=== PATIENT | female | born 1970 | race Caucasian/White ===

== ENCOUNTER 2024-03-20 08:12 | Outpatient (OUT) | payer BC, SELFPAY ==
--- NOTE | 2024-03-20 | XR_ITS ---
The [address] [address] Patient Name: MARLA CABEZAS MRN: [id number] date: 1970 Sex: F Assigned Patient Location: Current Patient Location: Accession/Order Number: [id number] Exam Date: 03/20/2024 13:40 Report Date: 03/21/2024 05:43 At the request of: TRISTAN VITALE Procedure: XR ankle LT min 3V PROCEDURE: XR foot LT min 3V, XR ankle LT min 3V HISTORY: LEFT FOOT PAIN ; dorsal midfoot pain radiating to lateral ankle COMPARISON: None. FINDINGS: BONES:Separate ossification adjacent tip of lateral malleolus with corticated margins favoring sequela of remote injury or an ununited secondary ossification center. No fracture, dislocation, bone lesion. Prominent calcaneal plantar spur. SOFT TISSUES:No visible soft tissue swelling. EFFUSION:None visible. OTHER: Negative. XR/XR ankle LT min 3V IMPRESSION: 1. No acute or specific findings to account for patient's symptoms. 2. Mild chronic/degenerative changes. Electronically authenticated by: ENRIKE CA Date: 03/21/2024 05:43
--- NOTE | 2024-03-20 | XR_ITS ---
The [address] [address] Patient Name: MARLA CABEZAS MRN: [id number] date: 1970 Sex: F Assigned Patient Location: Current Patient Location: Accession/Order Number: [id number] Exam Date: 03/20/2024 13:15 Report Date: 03/21/2024 05:43 At the request of: TRISTAN VITALE Procedure: XR foot LT min 3V PROCEDURE: XR foot LT min 3V, XR ankle LT min 3V HISTORY: LEFT FOOT PAIN ; dorsal midfoot pain radiating to lateral ankle COMPARISON: None. FINDINGS: BONES:Separate ossification adjacent tip of lateral malleolus with corticated margins favoring sequela of remote injury or an ununited secondary ossification center. No fracture, dislocation, bone lesion. Prominent calcaneal plantar spur. SOFT TISSUES:No visible soft tissue swelling. EFFUSION:None visible. OTHER: Negative. XR/XR foot LT min 3V IMPRESSION: 1. No acute or specific findings to account for patient's symptoms. 2. Mild chronic/degenerative changes. Electronically authenticated by: ENRIKE CA Date: 03/21/2024 05:43
== END 2024-03-20 08:13 | disposition home or self-care (01) ==
PROVIDERS: Visit Provider Podiatrist Foot & Ankle Surgery
DX: M79.672 Pain in left foot (principal); M25.572 Pain in left ankle and joints of left foot
CPT/HCPCS: 73610; 73630

== ENCOUNTER 2024-03-28 08:29 | Outpatient (OUT) | payer BC, SELFPAY ==
--- NOTE | 2024-03-28 | MR_ITS ---
The [address] [address] Patient Name: MARLA CABEZAS MRN: [id number] date: 1970 Sex: F Assigned Patient Location: MRI Current Patient Location: MRI Accession/Order Number: [id number] Exam Date: 03/28/2024 08:45 Report Date: 04/02/2024 08:38 At the request of: TRISTAN VITALE Procedure: MR ankle LT wo con EXAM: MR ankle LT wo con REASON FOR EXAM: Ankle instability M25.372, peroneal tear S86.312A. TECHNIQUE: Multiplanar, multisequence imaging of the left ankle was performed without contrast COMPARISON: Radiograph 03/20/2024. FINDINGS: There is mild fusiform thickening and intermediate signal the Achilles tendon, consistent with tendinosis. No tear is evident. The plantar fascia is thickened with an inferior calcaneal spur. A discrete tear is not evident. Laterally, the peroneal tendons are mildly thickened with intermediate signal consistent with tendinosis. No tear. The superficial peroneal retinaculum is intact. The anterior talofibular ligament is thin and attenuated and the calcaneofibular ligament is thickened with intermediate signal consistent with prior lateral ligamentous injury. No evidence of acute lateral ligamentous injury. Medially, the medial flexor tendons demonstrate mild thickening and intermediate signal of the posterior tibial tendon consistent with tendinosis. No tear. The flexor hallucis longus and flexor digitorum longus tendons are unremarkable. The deep deltoid ligament appears intact. The spring ligament is intact. The Lisfranc ligament is incompletely evaluated. Anteriorly, the anterior extensor tendons demonstrate normal thickness and signal without tendinosis or tear. The bone marrow signal is without acute fracture. The talar dome is congruent. The subtalar joints intact. The sinus tarsi is nonedematous. The midfoot appears congruent with moderate to severe osteoarthritis, most notable at the first through third TMT joints. The plantar musculature demonstrates normal bulk and signal. Remaining soft tissues are unremarkable. MR/MR ankle LT wo con IMPRESSION: 1. Sequela of prior lateral ligamentous injury. No evidence of acute ligamentous injury. 2. 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 3. Chronic plantar fasciopathy without tear. 4. 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 Electronically authenticated by: RUDY RODRÍGUEZ Date: 04/02/2024 08:38
--- OUTSIDE RECORDS SUMMARY | 2024-03-28 08:32 | XMS_ITS | CCD ---
Author Organization [facility] Care Team Providers Care [employer] Name Role Phone Paul Mackenzie Jr Attending Unavailable Paul Mackenzie Jr Admitting Unavailable DO Paul Mackenzie Jr Attending Provider [phone] Nasrin Glass Primary Care Physician Lola Velarde Unavailable Unavailable Karen Harper Unavailable Unavailable AllsoKaren lofton Attending Unavailable Karen Doty Admitting Unavailable Jack Solis Admitting Unavailable Jack Solis Attending Unavailable Jack Solis Referring Unavailable Nasrin Glass MD Unavailable Nasrin Glass MD Primary Care Provider NASRIN GLASS Attending Unavailable ROBIN BURNHAM Referring Unavailable NASRIN GLASS Attending Unavailable MARTÍNEZ KEMP Attending Unavailable Allergies Allergy Classification Reported Allergen(s) Allergy Type Date of Onset Reaction(s) Facility (3 sources) Bleach; Translations: [Bleach] Drug allergy Rash [facility] (1 source) No Known Medication Allergies; Translations: [No Known Medication Allergies] Propensity to adverse reactions (disorder) [facility] (3 sources) Hypochlorite Drug Allergy 3 Unknown [facility] (3 sources) Other Allergy to substance 3 [facility] Medications Current Medications Medication Drug Class(es) Dates Sig (Normalized) Sig (Original) Percocet (2 sources) Opioid Agonist Start: 06-30-2011 take 1 tablet by mouth every six hours Percocet 10/325 Oral, q6hr, tab(s), Refill(s) 0 Start Date: 06/30/11 Status: Ordered [id number] 200 actuat albuterol 0.09 mg/actuat metered dose inhaler (3 sources) beta2-Adrenergic Agonist Start: 01-05-2023 albuterol HFA 90 mcg/act inhaler azithromycin 250 mg oral tablet (5 sources) Macrolide Antimicrobial Start: 10-05-2023 azithromycin (Zithromax) 250 MG tablet Indications: Acute cough Take 2 tabs PO x 1 day then 1 tab PO daily x 4 days 6 tablet 0 10/05/2023 Active Start: 12-09-2019 take 1 tablet by carol th once daily azithromycin 250 mg Tab 250 mg, Oral, As Directed, Take two tabs by mouth on day one, then one tab daily, # 6 tab(s), Refills(s) 0, Pharmacy: [facility], 168, cm, 12/09/19 9:36:00 EDT, Height/Length Measured, 100, kg, 12/09/19 9:36:00 EDT, Weight Measured Start Date: 12/09/19 Status: Ordered 120 actuat budesonide 0.16 mg/actuat / formoterol fumarate 0.0048 mg/actuat / glycopyrrolate 0.009 mg/actuat metered dose inhaler (3 sources) Corticosteroid, beta2-Adrenergic Agonist Start: 03-30-2023 take 2 puff(s) by inhalation in the morning Vpovsnl-Cwatwhgjfde-Bxobuocoqh (Breztri Aerosphere) 160-9-4.8 MCG/ACT aerosol Indications: Moderate persistent asthma without complication (CMS/HCC) Inhale 2 puffs in the morning and 2 puffs before bedtime. 10.7 g 5 03/30/2023 Active codeine phosphate 2 mg/ml / guaiFENesin 20 mg/ml oral solution (2 sources) Opioid Agonist Start: 11-13-2019 take 10 mL by mouth every four hours for cough codeine-guaifenesin 10 mg-100 mg/5 mL oral syrup 10 mL, Oral, q4hr for cough, 240 mL, Refill(s) 0, [facility], 170, cm, 11/13/19 14:43:00 EDT, Height/Length Measured, 99, kg, 11/13/19 14:43:00 EDT, Weight Measured Start Date: 11/13/19 Status: Ordered cyclobenzaprine (2 sources) Muscle Relaxant Start: 06-30-2011 Flexeril Oral, TID, Refills( s) 0 Start Date: 06/30/11 Status: Ordered diclofenac sodium 75 mg delayed release oral tablet (3 sources) Nonsteroidal Anti-inflammatory Drug Start: 07-02-2023 diclofenac (Voltaren) 75 MG EC tablet Diclofenac 75mg Tab-DR (2 sources) Start: 10-21-2019 take 1 mg by mouth twice daily Diclofenac 75mg Tab-DR mg, Oral, BID, Refills(s) 0 Start Date: 10/21/19 Status: Ordered eletriptan 40 mg oral tablet (3 sources) Serotonin-1b and Serotonin-1d Receptor Agonist Relpax 40 MG tablet Take 40 mg by mouth. 0 Active estradiol 2 mg oral tablet (3 sources) Estrogen Start: 07-04-2023 take 1 tablet by mouth in the morning estradiol (Estrace) 2 MG tablet Indications: Hormone replacement therapy (HRT) Take 1 tablet (2 mg) by mouth in the morning. 90 tablet 3 07/04/2023 Active estradiol 1 mg / progesterone 100 mg oral capsule (2 sources) Progesterone, Estrogen Start: 10-21-2019 take 1 capsule by mouth once daily in the evening Bijuva 1 mg-100 mg oral capsule cap(s), Oral, qPM, Refill(s) 0 Start Date: 10/21/19 Status: Ordered ibuprofen 800 mg oral tablet (5 sources) Nonsteroidal Anti-inflammatory Drug Start: 11-13-2019 take 1 tablet by mouth every six hours at mealtime ibuprofen 800 mg Tab 800 mg = 1 tab(s), Oral, q6hr, with food or milk, # 40 tab(s), Refills(s) 0, Pharmacy: [facility], 170, cm, 11/13/19 14:43:00 EDT, Height/Length Measured, 99, kg, 11/13/19 14:43:00 EDT, Weight Measured Start Date: 11/13/19 Status: Ordered lisinopril 10 mg oral tablet (5 sources) Angiotensin Converting Enzyme Inhibitor Start: 12-03-2022 lisinopril 10 MG tablet Start: 10-21-2019 take 1 tablet by carol th once daily lisinopril 5 mg Tab 5 mg = 1 tab(s), Oral, Daily, # 30 tab(s), Refills(s) 0 Start Date: 10/21/19 Status: Ordered loratadine 10 mg oral tablet (3 sources) take 1 tablet by mouth in the morning loratadine (Claritin) 10 MG tablet Take 10 mg by mouth in the morning. 0 Active medroxyPROGESTERone acetate 2.5 mg oral tablet (3 sources) Progestin Start: 2022 take 1 tablet by mouth in the morning medroxyPROGESTERone (Provera) 2.5 MG tablet Indications: Hormone replacement therapy (HRT) Take 1 tablet (2.5 mg) by mouth in the morning. Take with food.. 90 tablet 3 07/04/2023 Active Mobic (2 sources) Nonsteroidal Anti-inflammatory Drug Start: 2010 Mobic Oral, Daily, Refills(s) 0 Start Date: 06/30/11 Status: Ordered Multiple Vitamins-Minerals (MULTI COMPLETE PO) (3 sources) Multiple Vitamins-Minerals (MULTI COMPLETE PO) Orally 0 Active predniSONE 20 mg oral tablet (3 sources) Start: 2023 End: 2023 take 2 tablets by mouth in the morning predniSONE (Deltasone) 20 MG tablet Indications: Acute cough Take 2 tablets (40 mg) by mouth in the morning for 5 days. 10 tablet 0 10/05/2023 10/10/2023 Active sertraline 50 mg oral tablet (5 sources) Serotonin Reuptake Inhibitor Start: 2022 take 1 tablet by mouth in the morning sertraline (Zoloft) 50 MG tablet Indications: Anxiety, generalized (CMS/HCC) Take 1 tablet (50 mg) by mouth in the morning. 90 tablet 3 07/04/2023 Active Start: 10-21-2019 take 50 mg by mouth once daily Zoloft 20 mg/mL oral concentrate 50 mg = 2.5 mL, Oral, Daily, # 225 mL, Refills(s) 0 Start Date: 10/21/19 Status: Ordered Problems Active Problems Problem Classification Problem Date Documented Date Episodic/Chronic Anxiety disorders (3 sources) Anxiety; Translations: [Anxiety disorder, unspecified] Onset: 03-29-2023 03-29-2023 Chronic Asthma (6 sources) Intermittent asthma; Translations: [Mild intermittent asthma, uncomplicated] Onset: 03-29-2023 Resolved: 03-29-2023 03-29-2023 Chronic Chronic obstructive pulmonary disease and bronchiectasis (3 sources) Acute exacerbation of chronic obstructive airways disease; Translations: [Chronic obstructive pulmonary disease with (acute) exacerbation] Onset: 03-29-2023 Resolved: 03-29-2023 03-29-2023 Chronic Disorders of lipid metabolism (6 sources) Hypercholesterolemia; Translations: [Pure hypercholesterolemia, unspecified] Onset: 11-17-2021 03-29-2023 Chronic Essential hypertension (6 sources) Essential hypertension; Translations: [Essential (primary) hypertension] Onset: 03-29-2023 03-29-2023 Chronic Headache; including migraine (9 sources) Menstrual migraine; Translations: [Menstrual migraine, not intractable, without status migrainosus] Onset: 06-23-2020 Resolved: 03-29-2023 03-29-2023 Chronic Menopausal disorders (3 sources) Disorder associated with menstruation AND/OR menopause; Translations: [Unspecified menopausal and perimenopausal disorder] Onset: 03-29-2023 03-29-2023 Chronic Mood disorders (3 sources) Mild depression; Translations: [Mild depression] Onset: 05-15-2021 03-29-2023 Chronic Nutritional deficiencies (3 sources) Vitamin D deficiency; Translations: [Vitamin D deficiency, unspecified] Onset: 11-17-2021 03-29-2023 Chronic Osteoarthritis (3 sources) Degenerative joint disease involving multiple joints; Translations: [Polyosteoarthritis, unspecified] Onset: 07-10-2019 03-29-2023 Chronic Other circulatory disease (2 sources) Pulmonary congestion ; Translations: [Other specified symptoms and signs involving the circulatory and respiratory systems] 10-06-2023 Episodic Other lower respiratory disease (2 sources) Cough; Translations: [Acute cough] 10-05-2023 Episodic Other nervous system disorders (3 sources) Chronic pain; Translations: [Other chronic pain] Onset: 03-29-2023 03-29-2023 Chronic Other nervous system disorders (3 sources) Plantar nerve lesion; Translations: [Lesion of plantar nerve, unspecified lower limb] Onset: 03-29-2023 03-29-2023 Chronic Other nutritional; endocrine; and metabolic disorders (3 sources) Lipoprotein deficiency disorder; Translations: [Lipoprotein deficiency] Onset: 04-12-2022 03-29-2023 Chronic Other upper respiratory disease (3 sources) Allergic rhinitis; Translations: [Allergic rhinitis, unspecified] Onset: 07-10-2019 03-29-2023 Chronic Peripheral and visceral atherosclerosis (3 sources) Atherosclerosis of aorta; Translations: [Atherosclerosis of aorta] Onset: 07-16-2021 03-29-2023 Chronic Prolapse of female genital organs (12 sources) Disorder of rectum; Translations: [Rectocele] Onset: 03-13-2022 Resolved: 07-04-2023 03-29-2023 Chronic Spondylosis; intervertebral disc disorders; other back problems (3 sources) Herniation of nucleus pulposus of lumbar intervertebral disc; Translations: [Other intervertebral disc displacement, lumbar region] Onset: 03-29-2023 03-29-2023 Chronic Thyroid disorders (3 sources) Hypothyroidism; Translations: [Hypothyroidism, unspecified] Onset: 07-10-2019 03-29-2023 Chronic Unclassified (2 sources) Discectomy of spine Onset: 05-19-2011 06-30-2011 Comment on above: 05/19/11, and 04/01/10 , L4-5 Past or Other Problems Problem Classification Problem Date Documented Date Episodic/Chronic Acute bronchitis (2 sources) Acute bronchitis Onset: 09-30-2019 11-13-2019 Episodic Other diseases of veins and lymphatics (3 sources) Peripheral venous insufficiency; Translations: [Venous insufficiency (chronic) (peripheral)] Onset: 07-10-2019 03-29-2023 Episodic Pneumonia (except that caused by tuberculosis or sexually transmitted disease) (5 sources) Pneumonia; Translations: [Pneumonia, unspecified organism] Onset: 11-04-2019 11-13-2019 Episodic Residual codes; unclassified (3 sources) Amnesia; Translations: [Other amnesia] Onset: 05-15-2021 03-29-2023 Episodic Residual codes; unclassified (3 sources) Insomnia; Translations: [Insomnia, unspecified] Onset: 05-08-2020 Resolved: 07-04-2023 07-04-2023 Episodic Spondylosis; intervertebral disc disorders; other back problems (6 sources) Lumbago co-occurrent with right-side sciatica; Translations: [Lumbago with sciatica, right side] Onset: 07-14-2022 Resolved: 03-29-2023 03-29-2023 Episodic Varicose veins of lower extremity (3 sources) Varicose veins of lower extremity; Translations: [Varicose veins of bilateral lower extremities with pain] Onset: 03-29-2023 03-29-2023 Episodic Viral infection (3 sources) Disease caused by 2019-nCoV; Translations: [COVID-19] Onset: 07-05-2020 04-24-2023 Episodic Results Test Name Value Interpretation Reference Range Facility BI MAMMOGRAM SCREENING TOMOS YNTHESIS BILATERALon 07-04-2023 BI MAMMOGRAM SCREENING TOMOSYNTHESIS BILATERAL This is a summary report. The complete report is available in the patient's medical record. If you cannot access the medical record, please contact the sending organization for a detailed fax or copy. EXAM: BI MAMMOGRAM SCREENING TOMOSYNTHESIS BILATERAL DATE: 07/24/2023 3:11 PM CLINICAL HISTORY: screening. COMPARISONS: 02/21/2020, 05/26/2017, and 05/13/2015. TECHNIQUE: Routine full-field digital mammograms and 3D breast tomosynthesis of both breasts were obtained. FINDINGS: There are no developing masses, suspicious microcalcifications, or areas of architectural distortion identified on the current study. No significant changes are identified from the prior studies, given differences in technique and positioning. IMPRESSION: BIRADS 1 - Negative Follow-up: Routine Screening Mamm. Density: Scattered fibroglandular density [2]. Board Certified Radiologists. Accredited by the ACR and FDA. MAMMOGRAPHY IS VERY IMPORTANT TO YOUR HEALTH. THE CURRENT [employer] GUIDELINES RECOMMENDS ANNUAL MAMMOGRAPHY BEGINNING AT AGE 40. THIS FACILITY UTILIZES A REMINDER SYSTEM TO ENSURE ALL PATIENTS RECEIVE REMINDER NOTIFICATIONS AT THE APPROPRIATE TIME BASED ON THE RECOMMENDATIONS OF THIS EXAM. ELECTRONICALLY SIGNED BY: Jacques Leonard MD Normal Not Available Comment on above: Order Comment: Last mammogram 2019 [facility] or spot compression prn MRI Ankle w/o Contrast Lefto n 05-10-2023 MRI Ankle w/o Contrast Left Exam Date/Time: 05/09/2023 18:38 EDT Reason for Exam: S92.022A M25.372 S93.492A M76.72 Report IMPRESSION: Findings suspicious for recent avulsed fracture at the tip of the lateral malleolus. Calcaneofibular ligament attaches near the fracture site. Low-grade sprains of the anterior and posterior talofibular ligaments. Degenerative changes in the midfoot. HISTORY: Twisting injury to ankle 2 weeks ago. Pain and swelling most and laterally. Denies prior ankle surgery. TECHNIQUE: Routine MRI of the left ankle/hindfoot COMPARISON: None RESULT: Cartilage: Tibiotalar and subtalar joint cartilage appears preserved. Degenerative changes in the partially imaged midfoot, especially at the first and second tarsometatarsal joints with subchondral cystic change. Ligaments: Distal tibiofibular ligaments appear intact. Anterior talofibular ligament appears grossly intact with mildly increased signal and thickening. Posterior talofibular ligament appears grossly intact with mildly increased signal. Calcaneofibular ligament appears grossly intact and attaching near the probable fracture as below. Deltoid ligament appears intact. Tendons: Achilles tendon, medial flexor tendons, peroneal tendons and extensor tendons are intact. Joint Fluid: Physiologic quantity of joint fluid. Bone Marrow: Cortical irregularity with small amount of bone marrow edema and tiny fragments at the tip of the lateral malleolus suspicious for recently avulsed fracture. No evidence for fracture elsewhere. No evidence for osteomyelitis or pathologic marrow infiltration. Plantar Aponeurosis: Intact with mild thickening of the central band and associated enthesophyte. Sinus Tarsi: Sinus tarsi is within normal limits. Muscle: Muscle bulk and signal intensity is within normal limits. Tarsal Tunnel: Tarsal tunnel is within normal limits. Report Other: Mild subcutaneous edema. Ordering Provider: Jack Solis FINAL REPORT Dictated: 05/10/2023 1:21 pm Rinku Dalton MD Signed (Electronic Signature): 05/10/2023 1:21 pm Signed by: Rinku Dalton MD Transcribed by: STACIA Technologist: ANTONIETA Technical Comments None Normal [facility] Consent for Treatmenton Consent for Treatment [id number]#1 .00CD:127 Normal [facility] RAD - MRI Screening Formon 0 05-09-2023 RAD - MRI Screening Form [id number]#1 .00CD:127 Normal [facility] Physician Orderon 05-02-2023 Physician Order [id number]#1 .00CD:127 Normal [facility] Physician Order [id number]#1. 00CD:127 Normal [facility] Coding Summary.on 12-24-2022 Coding Summary. CD:[id number] W w+PGhlYWQ+AV7JHHUqM10 beWAxaB4jX1MXOIfMLgoa ZPXBUYmSCvNuzqOyDM1ck XNjZXJu IC8+UJ2gEBOcDwrizRJbn 0J4xDB7U37bmp7eKJidvT I5UDNuLiIgjkimj0vhzRh 6IDcuNmluOyBt CDRkbT18KBB9cY86Qg60o EQwjPJlm6fkfBt2PyYcTL QxHMA4pZyvWQgix4TxDTT uD83ykJKvb6Q4 QLGqjFycjVEsXpAuoWS0m F0mXSiaqlmzb9jvjxbhDv z9cd97tRFzz0X8dJL8R8B iwiJ2GWFheMMg PqkxnLIJiN2zraafq7dqc qytFiEgJZWgQVl6FGu7OL HloWadEsGyUH91CRC8CFE tcvEfB2YyFDGj iJwjDbT4b8Y3Ic6QY0WPO gimQ2BTRZWOTYjyuEP+PC 90nv41H3KbCbhxNgz8EOP gUDJ6yPS5rT2o MOImQUhbq2T2aXG9I4Pum eVbek9ec4bxNZFaRVrtC8 7rnNTsq7X2FZTwwZB5KNI smMxvXbMlcM98 Oyc+EWDbyVbem0GeBcipk 7eti4qbpAc9DjbiBHCjdq RieMreAVJ9b0CgRn7eNJQ vsYA2xXA7yO4r HsGvCzU0XJajS394FdCep NFnWciiG37tU8CouOK+PH QvGlj5RKRmxRxvAS2iT7S hZGRpbmctbGVm uBpcVD7nLGKbnodaLFOjz G9pLISpH9s6NeAkGjF8EF anI1EtCWZfsnopJn68iH0 gEkCqQzW6JPht O9XwkiE1VQDbrBHpJDpnW ZC0Z20qk4L9VJTcVDToMZ V8vZU6iH9ioKmsubinwTC mdDsgdmVydGlj XEhzPYhsQ389MGZckQllR kNvZGluZyBEYXRlOiAgMD QvMjIvMjAyMzwvdGQ+PHR uVUY8xHxySZOv dHKmJFhiQz4grVoffCulL B2bAJVuqoyxCNAkhB9yUH UatYRrdKeoQE8cXDZrdhf sc900YeBlGVP7 GLCkrGVqP1JqrK5kNjGmH XKmVTZaM7IggDPuZVuxU7 45AIdwSnV7FDSddfYcL9C sLWFsaWduOiB0 h6M1Sv3Cs5OtwafvZ2Zff FJzGgYpLzxnKQz3N8EzXb wvdHI+UC91WSCpBG70GNm 8YOW5zKpcHRzj VJLvS0AueI8kZnBbPBHcO GRkOyc+PHRhYmxlIHdpZH RoPScxMDAlJyBzdHlsZT0 lFu5mDDMcMVNp rXrrlTXxDvGrn6ncZJIcW CtbFE3myFkdB0TloIW5MI Btm9y3Ch34K25cB7BuuFN +YOXigRA1fEU5 wB5yXvBdKyS7HLzaR776D hMslGAsBuxoc6oni6kkhK l7VwK8ANXneuCjjRelIYC 9o1IlIu14A41l IHdpZHRoPSIxNSUiIHZhb Naqpc5rsR4cUp9+PGNvbC X3hVA4eW8jBtOiLvT0OGi xJ036NqBgtBCy Mbztn2vdz0riuHj0YcHkE IKdwxFciMjbVXD3v0WtYn 67Y1PgfDrcr8BnYhk1aw6 9lGAzo9M6mUR3 S1FkONDqwtcijVUgnSovL S7oXGUrtptpNSIkqB6iYE RjI8o4ObLjEqI7MKlkW9Q xdoI4GMJvkWZw JZNwcGGHjO3bdelmg6tci jleYeVlZTCcGUm2INm9RD JneMdcSrBbXZN3PiO0MNP 5yUJtvT8esVbm aifsoP6uByo+DZS1zFQqf TMJZD5qUnrcaDB+PHRkIH W8bBhiXUleBNWzuU8cMEE uA5v8CqOuKpM9 GRwyL1ShihB5VIEmoYVwU QFdhIAGeC5pbyygc3nvfn inPtOdLIWoQIa6SPi4MNJ saWduOiBsZWZ0 EbP1OPP1wQSdzD8qtZbeg sbdmY0gKai+QmlydGggRG V7SVw9D9FhLem4WQFgsUa pDG3hdFIvMYer Jk3ucUynqOelON4jBGGcu pdzl321QlFbr3dtBDMqeS RzCLltDRO1C30ef6M9FAV fINSoXLV7dCR2 lR9dtAghulyztNFzgSmpz mHyzVyhDIoaJNheN617DK LheMkpAxZhYIv4V8OoYcb 3WPEqwMraQR1t aVCqZKxaZk0tiHlqvKdmT G5jVTDwrblec021CqNjk9 yqEIQgxROgZZffOIX2F17 vh3V3BNTbTGCf ASZ0wBP5gO8vlOnwxejed GVmdDsgdmVydGljYWwtYW dhI225YEWnpAaiDfSbbHe 3R5IiXrc4VZSz hGrfBN6zoEEjMUjpFt8ih LhhlRxlPX6nNCJcswxyk7 03DjSnq9ffTAFufDPpCCb sXCP0W57yr8O6 MZAjPTArDOS6oGX5tP5gb GlnbjogbGVmdDsgdmVydG puMYiyESijP931ALWgiGk nPlBhdGllbnQg YBknKBi2D6JuNmtqiJE+P L63PCZmMA73mYVkeQHfp4 fcmZz7LbXnHVHbRGD4yMr aNCnns6NqRELc O54kbAJxu6C8FTPcnOoyg HCpQnDiaAY6gY7hCVydej xdb1krdpxjMwmkc6zfvf6 9oF87R65hWFxm ZHRoPSIzMCUiIHZhbGlnb g1pyQ4nIk0+XNWvtBA0gL V5iV1rZMMeOsW1XEjrF58 9InRvcCIvPjxj w8jyf8rajVi0CpH4VEDhu hTuhTgtYKL6f4CiWg26S7 9sIHdpZHRoPSIyMCUiIHZ slPrbhj1chU3f Ii8+KOVwiYR4hRU5wQ4yO gUuNiI6ZTtwR581YfPgzU PkYuvhL45eI5EotVY+PHR cAjr7QZBudVjn UH8vmFBjSUfoEp3gYVX6Z lChUbMuZQmlZ2AqJIKkoy wseirxbAN4NXDmUQHjyD8 2Jw3bdSbkBWOo oREMhD3nvtrkd9samvetA lKbVGNqDIs8INb8ARIrqV zcMxBrKSO6TeL6UEY1lGQ xrB3htFsozrry cI4oA6NtJPNzzgzeIk47q W6jHrKjVtF8CXqoZma+Q0 2AHrwKWVZDD93JKKXOTD5 9DP98yMYyc2O9 yEL1P1BdMUJebqbgwazmx LP9RXPhZDRdcU06pQSjNO pfAl0re7D2q214BDWmLSR gyM05Bm0rbKwm HYRnrNSSnM9rqdddf3mpx eolWpXiVWWdRZz1SDg9OH HabFpeXuOxVIQ2GtG0VNV 9dENwxL9emLag bwoudK0nWeh+MDMvMTgvM Wi9IrdkeCO+AOWeYKC3zO tmNRqzXRKyxQ0lQFLnU0q 0NfPxWlP1GGzn P1VaNOIkcmgoUv25dE5aL hUeUhQ1FKzoR3AeddR3AV LmiEXsSKarQWU8G07mo8Z 1ATJiYRKuDKR5 rEA4eH2xwSlqooyfqVVdi DsgdmVydGljYWwtYWxpZ2 46IHRvcDsnPjUxIFllYXJ fTD36RH81uFZs i2V4iPB0B4WdIHAnyqhip bvfgZN9NJDnRRPscI31dB QxZMjqKa1ix2U9m529AJT rXRZioV38Je1d sKztMBCptSSExP0acmvow 6dmgkbxDfDvCZFlUZx3ZZ q2DMDanSzsNtRmVVA2ImA 4YQZ7mTFtuO4v mEwukngjcW4oBdi+RmVtY ZmdQJ95AE29qBAey4C6fA J9X6UaQEYkvwfjiqpnmDC 5UREpFBJsvS71 sOZoBBelAb3bg7Z4f117O LJnHBRmpB85Fl9slBtpTD WgoWDBxD1yjhulp6yulbw gIzAwMDAwMDt0 RKl8AHEycKakRhLtSPI1X sJ7FNW2pZQunZ1qxUtitj zxoA8nXzk+S5S0hHY0dQL udDwvdGQ+PC90 os02S8QmEhswViz0FEIjA HR2yZC2tP8oAMPhJOaiy1 J0jFY2J9WavqLofn5gp1g oFCPhNNwcY13z aPBxw5I3DVRjcOD0VRVzd GhfRpWktU11Snm+PGNvbG uko8MfIwuyp6tjp0eadRj 9IjMwJSIgdmFs gCndNOK9e2UfAc88A31dP HdpZHRoPSIzMCUiIHZhbG qvlt5uhF0yPi1+PGNvbCB 3gYN6aB6xIcAn NuA9NTuyK179CqQkdTUfM gbye0jor6skpPg6PoAaQS UvrqFwxWgqUTS9h3BmUr3 6Q0EyvPtmz6Gs Byt9fx19hATue8C3oOH2S 3BhZGRpbmctbGVmdDogMC 7qRPQtkfbfRMMnvJ6iTDJ pJ6n6OxTaVeD8 ZCaqO5BhfkW2BTXnmOHvL WWqrBEAlE6awueut4hakz orUnAbPQFrEPz2FYo0CZV saWduOiBsZWZ0 LcS6JLI7jZNmtL9oqCvgb gxnzF3zMva+MWn3l6hbjI AwIS9dzKQ0TX77NX89jWP ai6D4lKA3C4Hh RBNtbvpyamibmPV6KTHqR EMxaZ23Cn6lwKqmUs0yWV FxUFX3CMXraCIqG0LwaF3 yOiAjMDAwMDAw J3ZiaUUaEGjnU877PRsnF pZ5VMHpguCeD0KhRPQisV diKwI6b7F7Co0NBD31UP8 0TS44dFMzn7A5 dZP8S0SvDWJaoeqdeyqyj NB6CJBpNZMseW32Yy3nyL qqQf0dTGKhQJX5MYHitWP hQ8PvhV2yCwHe VSScWZFsD3CmfUTmLMyuL 355XSvkKgA7LQBpldXrN0 MrUXUwbXpeYnL1o4E4Qb9 VQo16EU85QQ01 rKFgz2F6fCK1S7AsUUBou gtmyqszuQB6JEKxIMXowH 50Vm7fuMjuRp2mPUCgLHI 6PKFfqSSiA9Og rE9bQqPgCPCcXMHuE8Rjv ZJqTEwyU822VYlwRkU4QM VunsEaP6GnASDaxZskYwZ 1p3E0Qr5VVHfx wrr3D2ZgSofztOI+PC90Y DKsUV83eRCsxJWhz1eoaV m5AsZhGITqXGB9oAmmVOs js2FrPXLdF15d kIHma8R9 (more content not included)... Normal [facility] Consent for Treatmenton 12-03 Consent for Treatment [id number] .[id number]:127 Normal [facility] Physician Orderon 12-19-2022 Physician Order [id number]# 1.00CD:127 Normal [facility] XR Chest 2 Viewson 3 XR Chest 2 Views Exam Date/Time: 12/19/2022 13:15 EDT Reason for Exam: J18.9 Report IMPRESSION: NO RADIOGRAPHIC EVIDENCE OF ACTIVE DISEASE IN THE CHEST. CLINICAL INFORMATION: J18.9 COMPARISON: DECEMBER 09, 2019 FINDINGS: Two views of the chest were obtained. Heart and mediastinum appear normal. The lungs appear clear. Visualized bony thorax and remainder of the chest appears unremarkable. Ordering Provider: Karen Doty FINAL REPORT Dictated: 12/19/2022 1:53 pm Israel Fischer MD Signed (Electronic Signature): 12/19/2022 1:53 pm Signed by: Israel Fischer MD Transcribed by: STACIA Technologist: LAURA Technical Comments Radiation Dose: Ka,r in mGy = na DAP = na Normal [facility] Basophils Auto (Bld) [#/Vol] Ordered By: Paul Mackenzie on 07-19-2022 Basophils (Bld) [#/Vol] 0.0 10*3/uL 0.0-0.2 [facility] Basophils/100 WBC Auto (Bld) Ordered By: Paul Mackenzie on 07-19-2022 Basophils/100 WBC (Bld) 0.4 % . F [facility] Body fluid albumin measureme nt (mass/volume)Ordered By: Paul Mackenzie on 07-19-2022 Albumin (Body fld) [Mass/Vol] 3.4 g/dL 3.2-5.5 [facility] Cholesterol [Mass/volume] in Serum or PlasmaOrdered By: Paul Mackenzie on 07-19-2022 Cholesterol [Mass/Vol] 255 mg/dL 140-200 [facility] Comment on above: Chol less than 200 m g/dl low riskChol 201-239 mg/dl borderline riskChol 240 mg/dl and greater high risk Cholesterol in LDL Calc [Mas s/Vol]Ordered By: Paul Mackenzie on 07-19-2022 Cholesterol in LDL [Mass/Vol] 164 mg/dL 0-100 [facility] Comment on above: LDL ATP III CLASSIFI CATIONLDL less than 100 mg/dL OptimalLDL 100-129 mg/dL Near or above optimalLDL 130-159 mg/dL Borderline highLDL 160-189 mg/dL HighLDL greater than 189 mg/dL Very high Cholesterol in VLDL Calc [Ma ss/Vol]Ordered By: Paul Mackenzie on 07-19-2022 Cholesterol in VLDL [Mass/Vol] 36 mg/dL [facility] Complete Blood Count no refl exon 07-19-2022 Basophils (Bld) [#/Vol] 0.0 10*3/uL Normal 0.0-0.2 [facility] Comment on above: Result Comment: PERF ORMED BY: [place] [address] PATHOLOGIST PAPER REELER PAYTON IGLESIAS M.D. Performed By: #### C MP, [facility] CBC, LIPID #### [facility] [address] Basophils/100 WBC (Bld) 0.4 % Normal . F [facility] Comment on above: Performed By: #### C MP, [facility] CBC, LIPID #### [address] Eosinophils (Bld) [#/Vol] 0.1 10*3/uL Normal 0.0-0.45 [facility] Comment on above: Performed By: #### C MP, [facility] CBC, LIPID #### [facility] [address] Eosinophils/100 WBC (Bld) 0.8 % Normal . [facility] Comment on above: Performed By: #### C MP, [facility] CBC, LIPID #### [address] Erythrocyte distribution width (RBC) [Ratio] 13.8 % Normal 11.9-15.3 [facility] Comment on above: Performed By: #### C MP, [facility] CBC, LIPID #### [address] Hematocrit (Bld) [Volume fraction] 43.9 % Normal 34.0-46.4 [facility] Comment on above: Performed By: #### C MP, [facility] CBC, LIPID #### [address] Hemoglobin (Bld) [Mass/Vol] 14.3 g/dL Normal 11.8-15.4 [facility] Comment on above: Performed By: #### C MP, [facility] CBC, LIPID #### [address] Lymphocytes (Bld) [#/Vol] 1.9 10*3/uL Normal 1.00-4.8 [facility] Comment on above: Performed By: #### C MP, [facility] CBC, LIPID #### [place] [address] [place] Lymphocytes/100 WBC (Bld) 19.1 % Normal . [facility] Comment on above: Performed By: #### C MP, [facility] CBC, LIPID #### [address] MCH (RBC) [Entitic mass] 27.5 pg Normal 24.7-34.3 [facility] Comment on above: Performed By: #### C MP, [facility] CBC, LIPID #### [facility] [address] MCV (RBC) [Entitic vol] 84.6 fL Normal 80-100 F [facility] Comment on above: Performed By: #### C MP, [facility] CBC, LIPID #### [facility] [address] Mean Corpuscular HGB Conc 32.5 g/dL Normal 32.0-35.0 [facility] Comment on above: Performed By: #### C MP, [facility] CBC, LIPID #### [facility] [address] [place] [address] [place] Monocytes (Bld) [#/Vol] 0.6 10*3/uL Normal 0.0-0.8 [facility] Comment on above: Performed By: #### C MP, [facility] CBC, LIPID #### [facility] [address] [place] [address] [place] Monocytes/100 WBC (Bld) 5.9 % Normal . F [facility] Comment on above: Performed By: #### C MP, [facility] CBC, LIPID #### [facility] [address] [place] [address] [place] Neutrophils (Bld) [#/Vol] 7.2 10*3/uL Normal 1.8-7.7 [facility] Comment on above: Performed By: #### C MP, [facility] CBC, LIPID #### [facility] [address] [place] [address] [place] Neutrophils/100 WBC (Bld) 73.8 % Normal . [facility] Comment on above: Performed By: #### C MP, [facility] CBC, LIPID #### [facility] [address] [place] [address] [place] Nucleated RBC/100 WBC (Bld) [Ratio] 0.2 % Normal 0-0.5 [facility] Comment on above: Performed By: #### C MP, [facility] CBC, LIPID #### [facility] [address] [place] [address] [place] Platelet mean volume (Bld) [Entitic vol] 8.9 fL Normal 6.3-10.7 [facility] Comment on above: Performed By: #### C MP, [facility] CBC, LIPID #### [facility] [address] Platelets (Bld) [#/Vol] 273 10*3/uL Normal 150-450 [facility] Comment on above: Performed By: #### C MP, [facility] CBC, LIPID #### [facility] [address] [place] [address] RBC (Bld) [#/Vol] 5.19 10*6/uL High 3.60-5.00 [facility] Comment on above: Performed By: #### C MP, [facility] CBC, LIPID #### [address] WBC (Bld) [#/Vol] 9.7 10*3/uL Normal 4.5-11.0 [facility] Comment on above: Performed By: #### C MP, [facility] CBC, LIPID #### [address] Comprehensive Metabolic Pane sweta 07-19-2022 Albumin [Mass/Vol] 3.4 g/dL Normal 3.2-5.5 [facility] Comment on above: Performed By: #### C MP, [facility] CBC, LIPID #### [address] Albumin/Globulin [Mass ratio] 1.1 {ratio} Normal [facility] Comment on above: Performed By: #### C MP, [facility] CBC, LIPID #### [address] ALP [Catalytic activity/Vol] 79 U/L Normal 32-92 [facility] Comment on above: Performed By: #### C MP, [facility] CBC, LIPID #### [address] ALT [Catalytic activity/Vol] 13 U/L Normal 10-60 [facility] Comment on above: Performed By: #### C MP, [facility] CBC, LIPID #### [address] [place] [address] [place] Anion gap [Moles/Vol] 14.0 mmol/L Normal 6.0-15.0 [facility] Comment on above: Performed By: #### C MP, [facility] CBC, LIPID #### [facility] [address] [place] [address] [place] AST [Catalytic activity/Vol] 17 U/L Normal 10-42 [facility] Comment on above: Performed By: #### C MP, [facility] CBC, LIPID #### [facility] [address] [place] [address] [place] Bilirubin [Mass/Vol] 0.7 mg/dL Normal 0.3-1.2 [facility] Comment on above: Performed By: #### C MP, [facility] CBC, LIPID #### [facility] [address] Calcium [Mass/Vol] 9.3 mg/dL Normal 8.2-10.2 [facility] Comment on above: Performed By: #### C MP, [facility] CBC, LIPID #### [facility] [address] [place] [address] [place] Chloride [Moles/Vol] 101 mmol/L Normal 95-114 [facility] Comment on above: Performed By: #### C MP, [facility] CBC, LIPID #### [facility] [address] [place] [address] [place] CO2 [Moles/Vol] 25.0 mmol/L Normal 22.0-30.0 [facility] Comment on above: Performed By: #### C MP, [facility] CBC, LIPID #### [facility] [address] [place] [id number] [place] Creatinine [Mass/Vol] 0.67 mg/dL Normal 0.44-1.03 [facility] Comment on above: Performed By: #### C MP, [facility] CBC, LIPID #### [facility] [address] [place] [address] [place] Estimated GFR ( Tami > 60 Normal [facility] Comment on above: Result Comment: GFR estimated reference range: According to KDOQI guidelines, <60 ml/min/1.73m2 is sufficient to diagnose a patient with chronic kidney disease. Performed By: #### C MP, [facility] CBC, LIPID #### [facility] [address] Estimated GFR (Non- Am > 60 Normal [facility] Comment on above: Performed By: #### C MP, [facility] CBC, LIPID #### [facility] [address] Globulin (S) [Mass/Vol] 3.0 g/dL Normal F [facility] Comment on above: Performed By: #### C MP, [facility] CBC, LIPID #### [facility] [address] Glucose [Mass/Vol] 73 mg/dL Normal 70-100 [facility] Comment on above: Result Comment: [facility] Glucose Reference Range is dependent on time and content of last meal. Glucose of more than 200 mg/dL in a nonstressed, ambulatory subject supports the diagnosis of Diabetes Mellitus. ADA recommended reference range Performed By: #### C MP, [facility] CBC, LIPID #### [facility] [address] Potassium [Moles/Vol] 4.0 mmol/L Normal 3.5-5.1 [facility] Comment on above: Performed By: #### C MP, [facility] CBC, LIPID #### [facility] [address] Protein [Mass/Vol] 6.4 g/dL Normal 6.1-7.9 [facility] Comment on above: Performed By: #### C MP, [facility] CBC, LIPID #### [facility] [address] Sodium [Moles/Vol] 136 mmol/L Normal 136-146 [facility] Comment on above: Performed By: #### C MP, [facility] CBC, LIPID #### [facility] [address] Urea nitrogen [Mass/Vol] 13 mg/dL Normal 9-23 [facility] Comment on above: Performed By: #### C MP, [facility] CBC, LIPID #### [facility] [address] [place] [id number] [facility] Creatinine and Glomerular fi ltration rate.predicted panel (S/P/Bld)Ordered By: Paul Mackenzie on 07-19-2022 Creatinine [Mass/Vol] 0.67 mg/dL 0.44-1.03 [facility] Eosinophils Auto (Bld) [#/Vo l]Ordered By: Paul Mackenzie on 07-19-2022 Eosinophils (Bld) [#/Vol] 0.1 10*3/uL 0.0-0.45 [facility] Eosinophils/100 WBC Auto (Bl d)Ordered By: Paul Mackenzie on 07-19-2022 Eosinophils/100 WBC (Bld) 0.8 % . [facility] Erythrocyte distribution wid th Auto (RBC) [Ratio]Ordered By: Paul Mackenzie on 07-19-2022 Erythrocyte distribution width (RBC) [Ratio] 13.8 % 11.9-15.3 [facility] Estimated glomerular filtrat ion rate (GFR) non- AmericanOrdered By: Paul Mackenzie on 07-19-2022 GFR/1.73 sq M.predicted among non-blacks MDRD (S/P/Bld) [Vol rate/Area] > 60 mL/Min [facility] Globulin Calc (S) [Mass/Vol] Ordered By: Paul Mackenzie on 07-19-2022 Globulin (S) [Mass/Vol] 3.0 g/dL F [facility] Hematocrit Auto (Bld) [Volum e fraction]Ordered By: Paul Mackenzie on 07-19-2022 Hematocrit (Bld) [Volume fraction] 43.9 % 34.0-46.4 [facility] Hemoglobin [Mass/volume] in BloodOrdered By: Paul Mackenzie on 07-19-2022 Hemoglobin (Bld) [Mass/Vol] 14.3 g/dL 11.8-15.4 [facility] Laboratory - Hematology and Cell countsOrdered By: Paul Mackenzie on 07-19-2022 Nucleated RBC/100 WBC (Bld) [Ratio] 0.2 % 0-0.5 [facility] Leukocytes [#/volume] in Blo od by Automated countOrdered By: Paul Mackenzie on 07-19-2022 WBC (Bld) [#/Vol] 9.7 10*3/uL 4.5-11.0 [facility] Lipid Panelon 07-19-2022 Cholesterol [Mass/Vol] 255 mg/dL High 140-200 [facility] Comment on above: Result Comment: Chol less than 200 mg/dl low risk Chol 201-239 mg/dl borderline risk Chol 240 mg/dl and greater high risk Performed By: #### C MP, [facility] CBC, LIPID #### [facility] [address] [place] [address] [place] Cholesterol in HDL [Mass/Vol] 55 mg/dL Normal 35-85 [facility] Comment on above: Result Comment: HDL CHOL ATP-III CLASSIFICATION Cardiovascular Risk HDL > or equal to 60 mg/dL LOW HDL < 40 mg/dL HIGH Performed By: #### C MP, [facility] CBC, LIPID #### [facility] [address] Cholesterol.total/Choles terol in HDL [Mass ratio] 4.6 {ratio} Normal <5.0 [facility] Comment on above: Result Comment: PERF ORMED BY: [place] [address] PATHOLOGIST PAPER REELER PAYTON IGLESIAS M.D. Performed By: #### C MP, [facility] CBC, LIPID #### [facility] [address] [place] [id number] [facility] LDL Cholesterol,Calculated 164 mg/dL High 0-100 [facility] Comment on above: Result Comment: LDL ATP III CLASSIFICATION LDL less than 100 mg/dL Optimal LDL 100-129 mg/dL Near or above optimal LDL 130-159 mg/dL Borderline high LDL 160-189 mg/dL High LDL greater than 189 mg/dL Very high Performed By: #### C MP, [facility] CBC, LIPID #### [facility] [address] [place] [id number] [place] Triglyceride w/Reflex 181 mg/dL High 35-149 [facility] Comment on above: Result Comment: TRIG ATP III CLASSIFICATION TRIG less than 150 mg/dL Normal TRIG 150-199 mg/dL Borderline high TRIG 200-500 mg/dL High TRIG greater than 500 mg/dL Very high Standard traceable to the Center for Disease Conrtrol and Prevention (CDC) test method. Performed By: #### C MP, [facility] CBC, LIPID #### [facility] [address] VLDL CHOLESTEROL 36 mg/dL Normal [facility] Comment on above: Performed By: #### C MP, [facility] CBC, LIPID #### [facility] [address] Lymphocytes Auto (Bld) [#/Vo l]Ordered By: Paul Mackenzie on 07-19-2022 Lymphocytes (Bld) [#/Vol] 1.9 10*3/uL 1.00-4.8 [facility] Lymphocytes/100 WBC Auto (Bl d)Ordered By: Paul Mackenzie on 07-19-2022 Lymphocytes/100 WBC (Bld) 19.1 % . [facility] MCH Auto (RBC) [Entitic mass ]Ordered By: Paul Mackenzie on 07-19-2022 MCH (RBC) [Entitic mass] 27.5 pg 24.7-34.3 [facility] MCHC Auto (RBC) [Mass/Vol]Or dered By: Paul Mackenzie on 07-19-2022 MCHC (RBC) [Mass/Vol] 32.5 g/dL 32.0-35.0 [facility] MCV Auto (RBC) [Entitic vol] Ordered By: Paul Mackenzie on 07-19-2022 MCV (RBC) [Entitic vol] 84.6 fL 80-100 F [facility] Monocytes Auto (Bld) [#/Vol] Ordered By: Paul Mackenzie on 07-19-2022 Monocytes (Bld) [#/Vol] 0.6 10*3/uL 0.0-0.8 [facility] Monocytes/100 WBC Auto (Bld) Ordered By: Paul Mackenzie on 07-19-2022 Monocytes/100 WBC (Bld) 5.9 % . F [facility] Neutrophils Auto (Bld) [#/Vo l]Ordered By: Paul Mackenzie on 07-19-2022 Neutrophils (Bld) [#/Vol] 7.2 10*3/uL 1.8-7.7 [facility] Neutrophils/100 WBC Auto (Bl d)Ordered By: Paul Mackenzie on 07-19-2022 Neutrophils/100 WBC (Bld) 73.8 % . [facility] No Panel InformationOrdered By: Paul Mackenzie on 07-19-2022 Estimated GFR () > 60 mL/Min [facility] Comment on above: GFR estimated refere nce range: According to KDOQI guidelines, <60 ml/min/1.73m2 is sufficient to diagnose a patient with chronic kidney disease. Pharmacy Creatinine Clearance (Chem N/A [facility] Platelet mean volume Auto (B ld) [Entitic vol]Ordered By: Paul Mackenzie on 07-19-2022 Platelet mean volume (Bld) [Entitic vol] 8.9 fL 6.3-10.7 [facility] Platelets Auto (Bld) [#/Vol] Ordered By: Paul Mackenzie on 07-19-2022 Platelets (Bld) [#/Vol] 273 10*3/uL 150-450 [facility] Protein [Mass/volume] in Ser um or PlasmaOrdered By: Paul Mackenzie on 07-19-2022 Protein [Mass/Vol] 6.4 g/dL 6.1-7.9 [facility] RBC Auto (Bld) [#/Vol]Ordere d By: Paul Mackenzie on 07-19-2022 RBC (Bld) [#/Vol] 5.19 10*6/uL 3.60-5.00 [facility] Serum or plasma alanine mathur otransferase measurement without P-5'-P (enzymatic activiOrdered By: Paul Mackenzie on 07-19-2022 ALT No additional P-5'-P [Catalytic activity/Vol] 13 U/L 10-60 [facility] Serum or plasma albumin/glob ulin mass ratioOrdered By: Paul Mackenzie on 07-19-2022 Albumin/Globulin [Mass ratio] 1.1 {ratio} [facility] Serum or plasma alkaline sanchez sphatase measurement (enzymatic activity/volume)Ordered By: Paul Mackenzie on 07-19-2022 ALP [Catalytic activity/Vol] 79 U/L 32-92 [facility] Serum or plasma anion gap de terminationOrdered By: Paul Mackenzie on 07-19-2022 Anion gap [Moles/Vol] 14.0 mmol/L 6.0-15.0 [facility] Serum or plasma aspartate am inotransferase measurement (enzymatic activity/volume)Ordered By: Paul Mackenzie on 07-19-2022 AST [Catalytic activity/Vol] 17 U/L 10-42 [facility] Serum or plasma calcium callie urement (mass/volume)Ordered By: Paul Mackenzie on 07-19-2022 Calcium [Mass/Vol] 9.3 mg/dL 8.2-10.2 [facility] Serum or plasma chloride armen surement (moles/volume)Ordered By: Paul Mackenzie on 07-19-2022 Chloride [Moles/Vol] 101 mmol/L 95-114 [facility] Serum or plasma glucose callie urement (mass/volume)Ordered By: Paul Mackenzie on 07-19-2022 Glucose [Mass/Vol] 73 mg/dL 70-100 [facility] Comment on above: ADA recommended refe rence rangeRandom Glucose Reference Range is dependent on time and content of last meal. Glucose of more than 200 mg/dL in a nonstressed, ambulatory subject supports the diagnosis of Diabetes Mellitus. Serum or plasma high density lipoprotein (HDL) cholesterol measurementOrdered By: Paul Mackenzie on 07-19-2022 Cholesterol in HDL [Mass/Vol] 55 mg/dL 35-85 [facility] Comment on above: HDL CHOL ATP-III CLA SSIFICATION Cardiovascular RiskHDL > or equal to 60 mg/dL LOWHDL < 40 mg/dL HIGH Serum or plasma potassium me asurement (moles/volume)Ordered By: Paul Mackenzie on 07-19-2022 Potassium [Moles/Vol] 4.0 mmol/L 3.5-5.1 [facility] Serum or plasma sodium measu rement (moles/volume)Ordered By: Paul Mackenzie on 07-19-2022 Sodium [Moles/Vol] 136 mmol/L 136-146 [facility] Serum or plasma total biliru bin measurement (mass/volume)Ordered By: Paul Mackenzie on 07-19-2022 Bilirubin [Mass/Vol] 0.7 mg/dL 0.3-1.2 [facility] Serum or plasma total carbon dioxide measurement (moles/volume)Ordered By: Paul Mackenzie on 07-19-2022 CO2 [Moles/Vol] 25.0 mmol/L 22.0-30.0 [facility] Serum or plasma total choles terol/high density lipoprotein (HDL) cholesterol mass ratOrdered By: Paul Mackenzie on 07-19-2022 Cholesterol.total/Choles terol in HDL [Mass ratio] 4.6 {ratio} <5.0 [facility] Serum or plasma urea nitroge n measurement (mass/volume)Ordered By: Paul Mackenzie on 07-19-2022 Urea nitrogen [Mass/Vol] 13 mg/dL 9-23 [facility] Triglyceride [Mass/volume] i n Serum or PlasmaOrdered By: Paul Mackenzie on 07-19-2022 Triglyceride [Mass/Vol] 181 mg/dL 35-149 F [facility] Comment on above: TRIG ATP III CLASSIF ICATIONTRIG less than 150 mg/dL NormalTRIG 150-199 mg/dL Borderline highTRIG 200-500 mg/dL High TRIG greater than 500 mg/dL Very highStandard traceable to the Center for Disease Conrtrol and Prevention (CDC) test method. XR chest 2V*on 07-19-2022 XR chest 2V* [facility] [place] [address] XRay Report Signed Patient: Mya Smith MR#: [id number] 67 : 1970 Acct:[id number] Age/Sex: 51 / F ADM Date: 07/19/22 Loc: [place] Room: Type: REG REF Attending Dr: Paul Mackenzie Jr, DO Copies to: Paul Mackenzie DO Ordering Provider: Paul Mackenzie DO Date of Service: 07/19/22 XR/XR chest 2V*: PRE EMPLOYMENT [employer] Plain film chest2 view HISTORY:History of asthma. Preemployment physical. COMPARISON:08/07/12 FINDINGS: Cardiac, mediastinal and hilar silhouettes are stable. No acute lung process, pleural effusion or pneumothorax identified. Bony structures are intact. XR/XR chest 2V* IMPRESSION: No acute process. Impression dictated by: Nicolás Elliott M.D.07/19/2022 12:04 PM Dictation Location: [place] [address] Transcribed By: [facility] 07/19/221203 Dictated By: Nicolás Elliott DO 07/19/221201 Signed By: 07/19/22 120 Normal [facility] C-Reactive Proteinon 022 CRP IV 1.3 mg/dl Normal <5.0 [facility] Comment on above: Performed By: #### C RP, LIPD, CMP, CBCAD, ESR #### [facility] [address] [place], [place] [id number] Complete Blood Count with Au to Diffon 09-08-2021 Basophils (Bld) [#/Vol] 0.04 10*3/uL Normal 0.00-0.20 [facility] Comment on above: Performed By: #### C RP, LIPD, CMP, CBCAD, ESR #### [facility] [address] [place], [place] [id number] Basophils/100 WBC (Bld) 0.5 % Normal [facility] Comment on above: Performed By: #### C RP, LIPD, CMP, CBCAD, ESR #### [facility] [address] [place], [place] [id number] Eosinophils (Bld) [#/Vol] 0.11 10*3/uL Normal 0.02-0.50 [facility] Comment on above: Performed By: #### C RP, LIPD, CMP, CBCAD, ESR #### [facility] [address] [place], [place] [id number] Eosinophils/100 WBC (Bld) 1.4 % Normal [facility] Comment on above: Performed By: #### C RP, LIPD, CMP, CBCAD, ESR #### [facility] [address] [place], [place] [id number] Erythrocyte distribution width (RBC) [Ratio] 13.3 % Normal 11.0-15.0 [facility] Comment on above: Performed By: #### C RP, LIPD, CMP, CBCAD, ESR #### [facility] [address] [place], [place] [id number] Hematocrit (Bld) [Volume fraction] 44.8 % Normal 35.0-47.0 [facility] Comment on above: Performed By: #### C RP, LIPD, CMP, CBCAD, ESR #### [facility] [address] [place], [place] [id number] Hemoglobin (Bld) [Mass/Vol] 14.3 g/dL Normal 11.6-15.5 [facility] Comment on above: Performed By: #### C RP, LIPD, CMP, CBCAD, ESR #### [facility] [address] [place], [place] [id number] Lymphocytes (Bld) [#/Vol] 1.9 10*3/uL Normal 0.9-3.9 [facility] Comment on above: Performed By: #### C RP, LIPD, CMP, CBCAD, ESR #### [facility] [address] [place], [place] [id number] Lymphocytes/100 WBC (Bld) 24.3 % Normal [facility] Comment on above: Performed By: #### C RP, LIPD, CMP, CBCAD, ESR #### [facility] [address] [place], [place] [id number] MCH (RBC) [Entitic mass] 27.3 pg Normal 27.0-33.0 [facility] Comment on above: Performed By: #### C RP, LIPD, CMP, CBCAD, ESR #### [facility] [address] [place], [place] [id number] MCHC (RBC) [Mass/Vol] 31.9 g/dL Low 32.0-36.0 [facility] Comment on above: Performed By: #### C RP, LIPD, CMP, CBCAD, ESR #### [facility] [address] [place], [place] [id number] MCV (RBC) [Entitic vol] 86 fL Normal 80-100 [facility] Comment on above: Performed By: #### C RP, LIPD, CMP, CBCAD, ESR #### [facility] [address] [place], [place] [id number] Monocytes (Bld) [#/Vol] 0.4 10*3/uL Normal 0.2-0.9 [facility] Comment on above: Performed By: #### C RP, LIPD, CMP, CBCAD, ESR #### [facility] [address] [place], [place] [id number] Monocytes/100 WBC (Bld) 5.1 % Normal [facility] Comment on above: Performed By: #### C RP, LIPD, CMP, CBCAD, ESR #### [facility] [address] [place], [place] [id number] Neutrophils (Bld) [#/Vol] 5.3 10*3/uL Normal 1.5-7.8 [facility] Comment on above: Performed By: #### C RP, LIPD, CMP, CBCAD, ESR #### [facility] [address] [place], [place] [id number] Neutrophils/100 WBC (Bld) 67.6 % Normal [facility] Comment on above: Performed By: #### C RP, LIPD, CMP, CBCAD, ESR #### [facility] [address] [place], [place] [id number] Platelet mean volume (Bld) [Entitic vol] 10.30 fL Normal 7.50-12.50 [facility] Comment on above: Performed By: #### C RP, LIPD, CMP, CBCAD, ESR #### [facility] [address] [place], [place] [id number] Platelets (Bld) [#/Vol] 327 10*3/uL Normal 140-400 [facility] Comment on above: Performed By: #### C RP, LIPD, CMP, CBCAD, ESR #### [facility] [address] [place], [place] [id number] RBC (Bld) [#/Vol] 5.23 10*6/uL High 3.90-5.[address] [facility] Comment on above: Performed By: #### C RP, LIPD, CMP, CBCAD, ESR #### [facility] [address] [place], [place] [id number] RDW-SD 41.4 fL Normal 37.0-50.0 [facility] Comment on above: Performed By: #### C RP, LIPD, CMP, CBCAD, ESR #### [facility] [address] [place], [place] [id number] WBC (Bld) [#/Vol] 7.9 10*3/uL Normal 3.8-11.0 [place] [facility] Comment on above: Performed By: #### C RP, LIPD, CMP, CBCAD, ESR #### [facility] [address] [place], [place] [id number] Comprehensive Metabolic Pane sweta 09-08-2021 Albumin [Mass/Vol] 4.3 g/dL Normal 3.6-5.1 [place] [facility] [facility] Comment on above: Performed By: #### C RP, LIPD, CMP, CBCAD, ESR #### [facility] [address] [place], [place] [id number] Albumin/Globulin [Mass ratio] 1.7 {ratio} Normal 1.0-2.5 [facility] [employer] Comment on above: Performed By: #### C RP, LIPD, CMP, CBCAD, ESR #### [facility] [address] [place], [place] [id number] ALP [Catalytic activity/Vol] 104 U/L Normal 35-119 [facility] [employer] [facility] Comment on above: Performed By: #### C RP, LIPD, CMP, CBCAD, ESR #### [facility] [address] [place], [place] [id number] ALT [Catalytic activity/Vol] 12 U/L Normal 6-33 [facility] [employer] Comment on above: Result Comment: 08/04 Female reference range changed. Performed By: #### C RP, LIPD, CMP, CBCAD, ESR #### [facility] [address] [place], [place] [id number] Anion gap [Moles/Vol] 17 mmol/L Normal 12-20 [facility] Comment on above: Result Comment: Effe ctive 09/09/2019 reference range changed. Performed By: #### C RP, LIPD, CMP, CBCAD, ESR #### [facility] [address] [place], [place] [id number] AST [Catalytic activity/Vol] 14 U/L Normal 9-34 [facility] Comment on above: Performed By: #### C RP, LIPD, CMP, CBCAD, ESR #### [facility] [address] [place], [place] [id number] Bilirubin [Mass/Vol] 0.41 mg/dL Normal 0.30-1.20 [facility] Comment on above: Performed By: #### C RP, LIPD, CMP, CBCAD, ESR #### [facility] [address] [place], [place] [id number] BUN/CREA 23 Ratio High 6-22 [facility] Comment on above: Performed By: #### C RP, LIPD, CMP, CBCAD, ESR #### [facility] [address] [place], [place] [id number] Calcium [Mass/Vol] 9.6 mg/dL Normal 8.6-10.2 [facility] [facility] Comment on above: Performed By: #### C RP, LIPD, CMP, CBCAD, ESR #### [facility] [address] [place], [place] [id number] Chloride [Moles/Vol] 108 mmol/L High 98-107 [facility] Comment on above: Performed By: #### C RP, LIPD, CMP, CBCAD, ESR #### [facility] [address], [place] [id number] CO2 [Moles/Vol] 23 mmol/L Normal 20-31 [facility] Comment on above: Performed By: #### C RP, LIPD, CMP, CBCAD, ESR #### [facility] [address], [place] [id number] Creatinine [Mass/Vol] 0.7 mg/dL Normal 0.6-1.4 [facility] Comment on above: Performed By: #### C RP, LIPD, CMP, CBCAD, ESR #### [facility] [address], [place] [id number] eGFRAA 111 mL/min/1.73m2 Normal >60 [facility] Comment on above: Performed By: #### C RP, LIPD, CMP, CBCAD, ESR #### [facility] [address], [place] [id number] eGFRNAA 92 mL/min/1.73m2 Normal >60 [facility] Comment on above: Performed By: #### C RP, LIPD, CMP, CBCAD, ESR #### [facility] [address], [place] [id number] Globulin (S) [Mass/Vol] 2.5 g/dL Normal 1.9-3.7 [facility] Special[facility] Comment on above: Performed By: #### C RP, LIPD, CMP, CBCAD, ESR #### [facility] [address], [place] [id number] Glucose [Mass/Vol] 87 mg/dL Normal 65-99 [facility] Comment on above: Result Comment: For FASTING Glucose --- ADA reference ranges: Normal 65-99 mg/dl Prediabetes 100-125 Diabetes >/= 126 Performed By: #### C RP, LIPD, CMP, CBCAD, ESR #### [facility] [address], [place] [id number] Potassium [Moles/Vol] 4.4 mmol/L Normal 3.5-5.5 [facility] Comment on above: Performed By: #### C RP, LIPD, CMP, CBCAD, ESR #### [facility] [address], [place] [id number] Protein [Mass/Vol] 6.8 g/dL Normal 6.1-8.1 [facility] [place] [facility] Comment on above: Performed By: #### C RP, LIPD, CMP, CBCAD, ESR #### [facility] [address], [place] [id number] Sodium [Moles/Vol] 144 mmol/L Normal 135-146 [facility] [place] [facility] Comment on above: Performed By: #### C RP, LIPD, CMP, CBCAD, ESR #### [facility] [address], [place] [id number] Urea nitrogen [Mass/Vol] 16 mg/dL Normal 7-25 [facility] Comment on above: Performed By: #### C RP, LIPD, CMP, CBCAD, ESR #### [facility] [address], [place] [id number] Lipid Panelon 09-08-2021 Cholesterol [Mass/Vol] 274 mg/dL High 125-200 [facility] Comment on above: Result Comment: Low risk < 200mg/dL Borderline risk 201-239 mg/dl High risk > or equal to 240 Performed By: #### C RP, LIPD, CMP, CBCAD, ESR #### [facility] [address], [place] [id number] Cholesterol in HDL [Mass/Vol] 49 mg/dL Normal >40 [facility] Comment on above: Result Comment: High Cardiovascular Risk HDL <40 mg/dL Low Cardiovascular Risk HDL > or equal to 60 mg/dl Performed By: #### C RP, LIPD, CMP, CBCAD, ESR #### [facility] [address], [place] [id number] Cholesterol in LDL [Mass/Vol] 189 mg/dL Normal [facility] Comment on above: Result Comment: LDL ATP III CLASSIFICATION LDL less than 100 mg/dl Optimal LDL 100-129 mg/dl Near or above optimal LDL 130-159 Borderline high LDL 160-189 High LDL greater than 189 mg/dl Very High Performed By: #### C RP, LIPD, CMP, CBCAD, ESR #### [facility] [address], [place] [id number] Cholesterol in VLDL [Mass/Vol] 36 mg/dL Normal [facility] Comment on above: Performed By: #### C RP, LIPD, CMP, CBCAD, ESR #### [facility] [address], [place] [id number] Cholesterol.total/Choles terol in HDL [Mass ratio] 6 {ratio} Normal [facility] Comment on above: Performed By: #### C RP, LIPD, CMP, CBCAD, ESR #### [facility] [address] [facility] [place] [id number] Triglyceride [Mass/Vol] 182 mg/dL High 30-150 [place] [facility] Comment on above: Result Comment: TRIG ATPIII CLASSIFICATIONS TRIG less than 150 mg/dl Normal TRIG 150-199 mg/dl Borderline High TRIG 200-500 mg/dl High TRIG greather than 500 mg/dl Very High Performed By: #### C RP, LIPD, CMP, CBCAD, ESR #### [facility] [address] [place], [place] [id number] Q - STEPHEN SCREEN IFA W/RFL TIT ER IFAon 09-08-2021 STEPHEN SCREEN, IFA Negative Normal NEGATIVE [facility] Special[facility] Comment on above: Order Comment: [facility] Testing performed at: Q, Rank By Search [facility], [address], [address] [place], [address], Art Instructor: Jaren Worley MD [facility] Collection Date/Time: [facility] Results Received Date/Time: [facility] Reported Date/Time: Result Comment: STEPHEN IFA is a first line screen for detecting the presence of up to approximately 150 autoantibodies in various autoimmune diseases. A negative STEPHEN IFA result suggests an STEPHEN-associated autoimmune disease is not present at this time, but is not definitive. If there is high clinical suspicion for Sjogren's syndrome, testing for anti-SS-A/Ro antibody should be considered. Anti-Sara-1 antibody should be considered for clinically suspected inflammatory myopathies. AC-0: Negative International Consensus on STEPHEN Patterns (https://doi.org/10.1515/vreg-6742-0837) For additional information, please refer to http://education.[employer] DIGITAL MEDIA/faq/ZBL812 (This link is being provided for informational/ educational purposes only.) Performed By: #### 2 49X #### [facility] [address] [place] [address] RBC Sedimentation Rateon ESR (Bld) [Velocity] 19.00 mm/h Normal 0.00-20.00 [place] [facility] Comment on above: Performed By: #### C RP, LIPD, CMP, CBCAD, ESR #### [facility] [address] [place], [place] [id number] Encounters Encounter Date Encounter Type Care Provider Facility Start: 01-18-2024 End: 01-18-2024 ambulatory MARTÍNEZAva KEMP Not Available Start: 12-18-2023 End: 12-18-2023 ambulatory NASRIN GLASS Not Available Start: 10-05-2023 End: 10-05-2023 ambulatory NASRIN GLASS Not Available Start: 10-05-2023 Bamboo flowsmanjit terrazas MD Work Phone: [facility] Start: 10-05-2023 Bamboo flowsmanjit terrazas MD Work Phone: [facility] Start: 10-05-2023 End: 10-05-2023 Office outpatient visit 15 minutes Nasrin Glass MD Work Phone: [facility] Comment on above: Acute cough (Primary Dx); Chest congestion Start: 07-24-2023 End: 07-25-2023 ambulatory ROBIN BURNHAM Not Available Start: 05-09-2023 End: 05-10-2023 ambulatory Jack Solis Facility:[facility] Start: 05-09-2023 End: 05-09-2023 Patient encounter procedure Jack Solis [facility] Start: 12-19-2022 End: 12-20-2022 ambulatory Karen Doty Facility:[facility] Start: 12-19-2022 End: 12-19-2022 Patient encounter procedure Karen Doty [facility] Start: 07-19-2022 End: 07-19-2022 ambulatory Paul Mackenzie Jr Facility:[facility] Start: 07-19-2022 End: 07-19-2022 ambulatory DO Paul Mackenzie Jr Work Phone: [facility] Work Phone: Start: 07-19-2022 End: 07-19-2022 Departed Referred DO Paul Mackenzie Jr Work Phone: [facility] [address] Procedures Date Procedure Procedure Detail Performing Clinician Start: 07-24-2023 Mammography Nasrin summers MD Work Phone: Start: 07-19-2022 Plain chest X-ray DO Ed elliott Avril Crum Work Phone: Discectomy of spine Karen Doty Plan of Treatment Date Care Activity Detail Author Start: 07-04-2028 Screening for malign ant neoplasm of cervix [facility] Start: 11-16-2025 Screening for malign ant neoplasm of colon [facility] Start: 07-24-2024 Screening for malign ant neoplasm of breast Mammogram [facility] Start: 07-09-2024 End: 07-09-2024 Patient encounter procedure 07/09/2024 9:00 AM EST Office Visit [facility] [address] [place] [id number] Robin Burnham, DO [address] [place] [address] [facility] Start: 11-19-1992 Screening for malign ant neoplasm of cervix Pap Smear [facility] Start: 1971 Screening for malign ant neoplasm of colon [facility] Immunizations Immunization Date Immunization Notes Care Provider Fa cility 07-10-2023 influenza, injectabl e, quadrivalent, contains preservative Nasrin Glass MD Work Phone: [facility] 08-12-2022 seasonal influenza, intradermal, preservative free Nasrin Glass MD Work Phone: [facility] 06-04-2020 influenza, injectabl e, quadrivalent, preservative free Nasrin Glass MD Work Phone: [facility] 06-12-2019 influenza, seasonal, injectable, preservative free Nasrin Glass MD Work Phone: [facility] 11-13-2018 influenza, seasonal, injectable Nasrin Glass MD Work Phone: [facility] 11-13-2018 pneumococcal polysaccharide vaccine, 23 valent Nasrin Glass MD Work Phone: [facility] 11-12-2018 pneumococcal polysaccharide vaccine, 23 valent Nasrin Glass MD Work Phone: [facility] 06-04-2018 influenza, seasonal, injectable, preservative free Nasrin Glass MD Work Phone: [facility] 06-20-2017 influenza, seasonal, injectable, preservative free Nasrin Glass MD Work Phone: [facility] 07-19-2016 influenza, injectabl e, quadrivalent, preservative free Nasrin Glass MD Work Phone: [facility] 06-04-2015 seasonal influenza, intradermal, preservative free Nasrin Glass MD Work Phone: [facility] Payers Date Payer Category Payer Unknown [id number] 2022 Unknown BCBS BCBS [id number] 2022-Present [phone] [address] [place] [address] [id number] 2022 Self-pay 1971 Unknown [id number] 1971 Unknown [id number] 1971 Unknown [id number] [id number] 1971 Unknown [id number] [id number] 1971 Unknown [id number] [id number] 1971 Unknown [id number] [id number] Private Health Insurance [facility] [employer] [id number] Unknown [id number] [id number] Unknown Jeff PAT/CHILO [id number] Social History Date Type Detail Facility Tobacco smoking stat [facility] Unknown if ever smoked [facility] Work Phone: Start: 1970 Sex Assigned At Female [facility] Start: 12-09-2019 End: 03-29-2023 Tobacco smoking status Never smoked tobacco (finding) [facility] Start: 03-29-2023 End: 07-04-2023 Sex Assigned At Female [facility] Start: 03-29-2023 Tobacco use and exposure Smokeless tobacco non-user [facility] Start: 07-24-2023 End: 10-06-2023 Alcohol intake Ex-drinker (finding) [facility] Start: 03-29-2023 End: 07-04-2023 History of Social function [facility] Within the last year , have you been afraid of your partner or ex-partner? No [facility] Frequency of Communication with Friends and Family Not on file [facility] Do you belong to any clubs or organizations such as pentecostalism groups, unions, fraternal or athletic groups, or school groups? Yes [facility] Are you now , , , , never or living with a partner? [facility] How often to you hav e a drink containing alcohol? Never [facility] Do you feel stress - tense, restless, nervous, or anxious, or unable to sleep at night because your mind is troubled all the time - these days [OSQ] Only a little [facility] (I/We) worried wheth er (my/our) food would run out before (I/we) got money to buy more. Never true [facility] Start: 03-30-2023 Alcohol Comment caffeine intake: 1-2 cups per day of coffee, soda/pop [facility] Start: 02-13-2023 Gender identity Identifies as female gender (finding) [facility] Start: 02-13-2023 Sexual orientation Heterosexual (finding) [facility] History of Present illness Narrative 10-05-2023 Nasrin Glass MD - 10/05/2023 1:40 PM EST Note Date & Type Note Facility 10-05-2023 History of Presen t illness Narrative Subjective Patient ID: Mya Smith is a 52 y.o. female who presents for No chief complaint on file.. HPI Telephone visit, consent obtained. Pt here for acute visit. C/o not feeling well x < 7 days +cough, junky sounding +SOB w/ exertional +nasal congestion Denies fevers Is using OTC meds w/o significant improvement +sick contacts Review of Systems General: Denies fever, chills CV: Denies CP, palpitations or swelling in legs GI: Denies abd pain/n/v/c/d Skin: Denies rash Neuro: Denies LH or dizziness Objective There were no vitals taken for this visit. There is no height or weight on file to calculate BMI. Physical Exam General: alert & oriented, NAD Assessment/Plan Diagnoses and all orders for this visit: Acute cough (Primary) - azithromycin (Zithromax) 250 MG tablet; Take 2 tabs PO x 1 day then 1 tab PO daily x 4 days - predniSONE (Deltasone) 20 MG tablet; Take 2 tablets (40 mg) by mouth in the morning for 5 days. Discussed sx tx, side effects of meds and concerning sx to monitor for. documented in this encounter [facility] Evaluation + Plan note Note Date & Type Note Facility Evaluation + Plan note No data available for this section [facility] Evaluation note Note Date & Type Note Facility Evaluation note [facility] Evaluation note Note Date & Type Note Facility Evaluation note Diagnosis Acute cough- Primary Chest congestion Other symptoms involving respiratory system and chest documented in this encounter [facility] Hospital Discharge instructions Note Date & Type Note Facility Hospital Discharge instructions No data available for this section [facility] Progress note Note Date & Type Note Facility Progress note No data available for this section [facility] Summary Purpose Family History No Family History Records FoundNo Family History Records FoundNo Family History Records FoundNo Family History Records Found Advance Directives No Advanced Directives Records FoundNo Advanced Directives Records FoundNo Advanced Directives Records FoundNo Advanced Directives Records Found Chief Complaint and Reason for Visit Chief Complaint [employer] Additional Source Comments INFORMATION SOURCE (unrecogn ized section and content) DATE CREATED AUTHOR 09/09/2021 [facility] dical Specialist DATE CREATED AUTHOR AUTHOR'S ORGANIZ ATION 07/20/2022 [facility] DATE CREATED AUTHOR AUTHOR'S ORGANIZ ATION 05/11/2023 [facility] DATE CREATED AUTHOR AUTHOR'S ORGANIZ ATION 01/20/2024 [facility] dical Specialists EPIC Care Teams (unrecognized sec tion and content) Team Status: Inactive Member Role Status Dates Paul Mackenzie Jr, DO Attending Provider Active [employer] Relationship Specialty Start Date End Date Nasrin Glass MD [address] [place] [address] PCP - [employer] 02/02/23 Nasrin Glass MD [address] [place] [address] PCP - General Family Medicine 03/29/23 [employer] Relationship Specialty Start Date End Date Nasrin Glass MD [address] [place] [address] PCP - [employer] 02/02/23 Nasrin Glass MD [address] [place] [address] PCP - General Family Medicine 03/29/23 Goals (unrecognized section and content) Goals may be documented in a n alternate section No data available for this section No data available for this section FOR RECORDS PERTAINING TO PATIENTS WHO ARE OR HAVE BEEN ENROLLED IN A CHEMICAL DEPENDENCY/SUBSTANCEABUSE PROGRAM, SOME INFORMATION MAY BE OMITTED. This clinical summary was aggregated from multiple sources. Caution should be exercised in using it in the provision of clinical care. This summary normalizes information from multiple sources, and as a consequence, information in this document may materially change the coding, format and clinical context of patient data. In addition, data may be omitted in some cases. CLINICAL DECISIONS SHOULD BE BASED ON THE PRIMARY CLINICAL RECORDS. [facility]. provides no warranty or guarantee of the accuracy or completeness of information in this document.
== END 2024-03-28 08:30 | disposition home or self-care (01) ==
LOC: MRI 08:29
PROVIDERS: Visit Provider Podiatrist Foot & Ankle Surgery
DX: M25.372 Other instability, left ankle (principal); S86.312A Strain of muscle(s) and tendon(s) of peroneal muscle group at lower leg level, left leg, initial encounter; M72.2 Plantar fascial fibromatosis; M19.072 Primary osteoarthritis, left ankle and foot
CPT/HCPCS: 73721